=== PATIENT | male | born 1950 | race Caucasian/White ===

== ENCOUNTER 2016-12-30 09:29 | Day surgery (SDC) | payer OTHER ==
[~2016-12-30 09:29] MED LIST: ceFAZolin 2 GM/50 ML 50 ML IV ONE
[2016-12-30] MEDS ORDERED: LACTATED RINGERS 1,000 ML IV ONE ×5 (09:50→13:00)
[2016-12-30] MEDS ORDERED: fentaNYL 100 MCG/2 ML VIAL IVP ONE (10:48)
[2016-12-30] MEDS ORDERED: MIDAZOLAM 2 MG/2 ML VIAL IVP ONE (10:48)
[2016-12-30] MEDS ORDERED: KETOROLAC 30 MG/ML VIAL IVP ONE (10:48)
[2016-12-30] MEDS ORDERED: LIDOCAINE-MPF 2% 5 ML VIAL IM ONE (10:48)
[2016-12-30] MEDS ORDERED: DEXAMETHASONE 4 MG/ML VIAL IVP ONE (10:48)
[2016-12-30] MEDS ORDERED: PROPOFOL 200 MG/20 ML VIAL IVP ONE (10:48)
[2016-12-30] MEDS ORDERED: ONDANSETRON 4 MG/2 ML VIAL IVP ONE (10:48)
[2016-12-30] MEDS ORDERED: BUPIVACAINE 0.5% PF 30 ML VIAL SUBQ ONE (11:34)
== END 2016-12-30 09:30 | disposition home or self-care (01) ==
PROC: 0JB60ZZ Excision of Chest Subcutaneous Tissue and Fascia, Open Approach (ICD-10-PCS; 2016-12-30)
PROC: 0JB60ZZ Excision of Chest Subcutaneous Tissue and Fascia, Open Approach (ICD-10-PCS; principal; 2016-12-30 10:30)
DX: D17.1 Benign lipomatous neoplasm of skin and subcutaneous tissue of trunk (principal); Z87.891 Personal history of nicotine dependence; Z79.82 Long term (current) use of aspirin
CPT/HCPCS: 21552; J0690; J7120

== ENCOUNTER 2017-09-30 15:31 | Outpatient (CLI) | payer OTHER ==
--- NOTE | 2017-10-01 12:30 | XRAY Report ---
DATE OF SERVICE: 09/30/2017 TWO-VIEW CHEST: 09/30/2017 CLINICAL INDICATION: Cough, rib pain. FINDINGS: Frontal and lateral views of the chest demonstrate a normal cardiac silhouette. There is minimal linear atelectasis or scarring at the left base. No focal infiltrate, effusion, or pneumothorax is present. IMPRESSION: MINIMAL LEFT BASILAR SCARRING OR ATELECTASIS. TD: 10/01/2017 12:28
== END 2017-09-30 15:32 | disposition home or self-care (01) ==
LOC: DI 15:31
PROVIDERS: ATTEND Nurse Practitioner Family
DX: R07.81 Pleurodynia (principal); R05 Cough
CPT/HCPCS: 71046

== ENCOUNTER 2019-06-03 07:05 | Outpatient (CLI) | payer OTHER ==
--- NOTE | 2019-06-03 09:08 | Ultrasound Report ---
Reason: SCREENING FOR AAA Procedure Date: 06/03/2019 Accession Number: [id number] / [id number] Procedure: US - Aorta Screening CPT Code: FULL RESULT: EXAM: AORTIC DOPPLER ULTRASOUND EXAM DATE: 06/03/2019 07:35 AM. CLINICAL HISTORY: Screening for AAA. History of atrial fibrillation 20 years ago. COMPARISON: None. TECHNIQUE: Real-time sonographic imaging of retroperitoneal vascular structures, including color-flow, Doppler flow and spectral analysis was performed by the specialty development consultant. Multiple vendor representatives static images were saved for review. FINDINGS: Aorta: The abdominal aorta was adequately visualized. No evidence for infrarenal abdominal aortic aneurysm. Aorta: Proximal: Sagittal AP 3.0 cm. Mid: Transverse 2.5 x 2.9 cm. Distal: Transverse 2.2 x 2.0 cm. Caliber: WNL: Yes. Plaque visualized: Mildly around distal aorta, iliacs. Iliacs: Right Iliac: Transverse 1.4 x 1.1 cm. Left Iliac: Transverse 1.4 x 1.3 cm. Iliac Vessels: The visualized proximal common iliac arteries are normal in caliber. The right common iliac maximum transverse diameter is 1.4 cm, while that of the left common iliac is 1.4 cm. Other: None. IMPRESSION: Normal. No infrarenal abdominal aortic or common iliac aneurysm. RADIA
== END 2019-06-03 07:06 | disposition home or self-care (01) ==
LOC: DI 07:05
PROVIDERS: ATTEND Internal Medicine
DX: Z13.6 Encounter for screening for cardiovascular disorders (principal)
CPT/HCPCS: 76706

== ENCOUNTER 2020-06-30 12:45 | Outpatient (CLI) | payer OTHER ==
[2020-06-30] MEDS ORDERED: IOVERSOL 320 50 ML VIAL ONE (13:10)
[2020-06-30] MEDS ORDERED: IOVERSOL 320 100 ML VIAL IVP ONE ×3 (13:10→15:50)
[2020-06-30] MEDS ORDERED: IOVERSOL 320 50 ML VIAL PO ONE (15:51)
--- NOTE | 2020-06-30 16:22 | CT Report ---
PROCEDURE: Abdomen/Pelvis W INDICATIONS: ABD PAIN CONTRAST: IV CONTRAST: Optiray 320 ml: 100 PO CONTRAST: Optiray 320 ml50 TECHNIQUE: After the administration of nonionic IV contrast, 5 mm thick sections acquired from the diaphragms to the symphysis. 5 mm thick coronal and sagittal reformats were acquired. For radiation dose reducti on, the following was used: automated exposure control, adjustment of mA and/or kV according to rita ent size. COMPARISON: None available for review at the time of this dictation. FINDINGS: Image quality: Excellent. ABDOMEN: Lung bases: Lung bases are clear. Heart size is normal. Solid organs: Liver and spleen are normal in size and enhancement. Diffuse fatty liver infiltration can be seen. Gallbladder wall does not appear thickened. Biliary system is non dilated. Pancrea s enhances normally. No adrenal nodules. Kidneys demonstrate normal size and enhancement, without h ydronephrosis. Peritoneum and bowel: Focal moderate wall thickening is seen involving the sigmoid colon. There is a likely large diverticulum with surrounding inflammatory change seen on series 3 image 80. No jessica f ree air is seen. No loculated abscess collection can be seen. No definite bowel wall thickening can be seen elsewhere. No dilated loops of small bowel are seen. Nodes and vessels: No retroperitoneal or mesenteric adenopathy by size criteria. Aorta and inferior vena cava are normal in size. Miscellaneous: A mild fat-containing periumbilical hernia is seen. PELVIS: Genitourinary: Bladder wall thickness is normal. Miscellaneous: No inguinal adenopathy. Bilateral fat-containing inguinal hernias are seen. Bones: No suspicious bony lesions. No vertebral body compression fractures. Degenerative changes ar e seen throughout, which are most prominent at the L4-L5 and the L5-S1 levels. IMPRESSION: Sigmoid diverticulitis, with a likely large diverticulum seen at the center of the abnor mality. Differential diagnosis includes a contained perforation, yet this is considered to be less li marv. A colonoscopy is recommended for further evaluation, following treatment of the patient's current cli nical episode, for evaluation of a potential underlying mass. Incidental note is made of: Focal lower lumbar spine degenerative change Fatty liver infiltration Fat-containing paraumbilical hernia Fat-containing inguinal hernias Reviewed by: Moisés Baker MD on 06/30/2020 3:21 PM AKDT Approved by: Moisés Baker MD on 06/30/2020 3:21 PM KANWAL Station ID: [id number]
== END 2020-06-30 12:46 | disposition home or self-care (01) ==
LOC: DI 12:45
PROVIDERS: ATTEND Nurse Practitioner Family
DX: K57.32 Diverticulitis of large intestine without perforation or abscess without bleeding (principal); K40.90 Unilateral inguinal hernia, without obstruction or gangrene, not specified as recurrent; K42.9 Umbilical hernia without obstruction or gangrene; K76.0 Fatty (change of) liver, not elsewhere classified
CPT/HCPCS: 74177; Q9967

== ENCOUNTER 2020-07-23 17:24 | Inpatient (IN) | payer OTHER, MEDICARE ==
[2020-07-23 18:10] LABS: BASOPHILS # (AUTO) 0.1 10^3/uL (0.0-0.1); BASOPHILS % (AUTO) 1.1 %; EOSINOPHILS # (AUTO) 0.1 10^3/uL (0.0-0.7); EOSINOPHILS % (AUTO) 1.1 %; LYMPHOCYTES # (AUTO) 1.3 10^3/uL (1.5-3.5); LYMPHOCYTES % (AUTO) 22.5 %; MEAN CORPUSCULAR HEMOGLOBIN 30.9 pg (27.0-31.0); MEAN CORPUSCULAR HGB CONC 34.4 g/dL (32.0-36.0); MEAN CORPUSCULAR VOLUME 89.9 fL (80.0-94.0); MEAN PLATELET VOLUME 9.4 fL (7.4-11.4); MONOCYTES # (AUTO) 0.5 10^3/uL (0.0-1.0); MONOCYTES % (AUTO) 8.8 %; NEUTROPHILS # (AUTO) 3.8 10^3/uL (1.5-6.6); NEUTROPHILS % (AUTO) 65.8 %; PLT - PLATELET COUNT 207 10^3/uL (130-450); RED BLOOD COUNT 5.17 10^6/uL (4.70-6.10); RED CELL DISTRIBUTION WIDTH 13.2 % (12.0-15.0); WHITE BLOOD COUNT 5.7 x10^3/uL (4.8-10.8)
[2020-07-23 18:24] LABS: ALBUMIN 4.2 g/dL (3.2-5.5); ALBUMIN/GLOBULIN RATIO 1.3 (1.0-2.2); BILIRUBIN,TOTAL 0.9 mg/dL (0.2-1.0); CALCIUM 9.4 mg/dL (8.5-10.3); CREATININE 1.3 mg/dL (0.6-1.2); TOTAL PROTEIN 7.5 g/dL (6.7-8.2)
[2020-07-23] MEDS ORDERED: IOVERSOL 320 100 ML VIAL IVP ONE ×2 (19:06→20:25)
[2020-07-23 19:14] LABS: BILIRUBIN,URINE NEGATIVE (NEGATIVE); GLUCOSE, URINE (UA) NEGATIVE (NEGATIVE); KETONES,URINE (UA) NEGATIVE (NEGATIVE); LEUKOCYTE ESTERASE, URINE NEGATIVE (NEGATIVE); NITRITE,URINE NEGATIVE (NEGATIVE); OCCULT BLOOD,URINE NEGATIVE (NEGATIVE); PH,URINE 5.5 PH (5.0-7.5); PROTEIN,URINE NEGATIVE (NEGATIVE); UROBILINOGEN,URINE 0.2 (NORMAL) E.U./dL (NORMAL)
[2020-07-23 19:16] LABS: CLARITY,URINE CLEAR (CLEAR)
--- NOTE | 2020-07-23 19:26 | ED Physician Documentation ---
History of Present Illness - Stated complaint Stated Complaint: ABD PAIN - Chief complaint Chief Complaint: Abd Pain - History obtained from History obtained from: Patient - History of Present Illness Timing: How many weeks ago (2) Pain level max: 5 Pain level now: 0 - Additonal information Additional information: 69-year-old male presents to the emergency department waning of continued abdominal pain. This been ongoing for the past 2 weeks. He states it is intermittent and sharp. States he had a CT scan here 2 weeks ago, placed on antibiotics for diverticulitis, but his symptoms have never fully resolved. No fevers. No vomiting. Nothing makes it better or worse. CT was actually on 06/30/2020, outpatient CT ordered by Deanna BECKHAM. Placed on cipro and flagyl at that time. Review of Systems Ten Systems: 10 systems reviewed and negative Constitutional: denies: Fever, Chills Throat: denies: Sore throat Cardiac: denies: Chest pain / pressure Respiratory: denies: Dyspnea, Cough GI: denies: Vomiting, Diarrhea Skin: denies: Rash Musculoskeletal: denies: Neck pain, Back pain Neurologic: denies: Headache PD PAST MEDICAL HISTORY - Past Medical History Cardiovascular: Other Respiratory: None Endocrine/Autoimmune: None GI: None : None HEENT: None Psych: None Musculoskeletal: None Derm: None - Past Surgical History Past Surgical History: Yes General: Appendectomy Derm: Skin cancer surgery - Present Medications Home Medications: Ambulatory Orders Medication Instructions Recorded Confirmed Flecainide Acetate 100 mg ORAL BID 11/11/14 12/30/16 Metoprolol Tartrate [Lopressor] 25 mg PO BID #20 tablet 11/12/14 12/30/16 Aspirin [Adult Low Dose Aspirin EC] 81 mg PO DAILY 12/29/16 12/30/16 - Allergies Allergies/Adverse Reactions: Allergies Allergy/AdvReac Type Severity Reaction Status Date / Time No Known Drug Allergies Allergy Verified 07/23/20 17:38 - Social History Does the pt smoke?: No Smoking Status: Former smoker Does the pt drink ETOH?: No Does the pt have substance abuse?: No - Immunizations Immunizations are current?: Yes - POLST Patient has POLST: No PD ED PE NORMAL - Vitals Vital signs reviewed: Yes - General General: Alert and oriented X 3, No acute distress - HEENT HEENT: Moist mucous membranes - Neck Neck: Supple, no meningeal sign - Cardiac Cardiac: RRR - Respiratory Respiratory: No respiratory distress, Clear bilaterally - Abdomen Abdomen: Soft, Non tender, Non distended - Back Back: No CVA TTP - Derm Derm: Warm and dry - Extremities Extremities: No edema - Neuro Neuro: Alert and oriented X 3 - Psych Psych: Normal mood, Normal affect Results - Vitals Vitals: Vital Signs - 24 hr 07/23/20 07/23/20 17:32 19:27 Temperature 36.4 C L 36.7 C Heart Rate 56 L 52 L Respiratory 18 18 Rate Blood Pressure 144/79 H 125/80 O2 Saturation 100 100 Oxygen O2 Source Room air - Labs Labs: Laboratory Tests 07/23/20 07/23/20 07/23/20 17:55 17:55 18:37 WBC 5.7 RBC 5.17 Hgb 16.0 Hct 46.5 MCV 89.9 MCH 30.9 MCHC 34.4 RDW 13.2 Plt Count 207 MPV 9.4 Neut # (Auto) 3.8 Lymph # (Auto) 1.3 L [place] # (Auto) 0.5 Eos # (Auto) 0.1 Baso # (Auto) 0.1 Absolute Nucleated RBC 0.00 Nucleated RBC % 0.0 Sodium 139 Potassium 4.1 Chloride 99 L Carbon Dioxide 28 Anion Gap 12.0 BUN 24 H Creatinine 1.3 H Estimated GFR (MDRD) 55 L Glucose 94 Calcium 9.4 Total Bilirubin 0.9 AST 17 ALT 21 Alkaline Phosphatase 78 Total Protein 7.5 Albumin 4.2 Globulin 3.3 Albumin/Globulin Ratio 1.3 Lipase 32 Urine Color YELLOW Urine Clarity CLEAR Urine pH 5.5 Ur Specific [place] >=1.030 H Urine Protein NEGATIVE Urine Glucose (UA) NEGATIVE Urine Ketones NEGATIVE Urine Occult Blood NEGATIVE Urine Nitrite NEGATIVE Urine Bilirubin NEGATIVE Urine Urobilinogen 0.2 (NORMAL) Ur Leukocyte Esterase NEGATIVE Ur Microscopic Review NOT INDICATED Urine Culture Comments NOT INDICATED - Rads (name of study) CT abdomen and pelvis Radiology: Prelim report reviewed, EMP read contemporaneously, See rad report PD MEDICAL DECISION MAKING - ED course Complexity details: reviewed old records, reviewed results, re-evaluated patient, considered differential, d/w patient, d/w sql consultant ED course: Patient is a 69-year-old male who presents to the sensory department with what appears to be a colonic wall abscess complicating diverticulitis. He was placed on ciprofloxacin and Flagyl several weeks ago, this did not improve his symptoms. CAT scan does not appear to show any new abscess. Last colonoscopy was 5 years ago and reportedly normal. He is on flecainide, therefore will want to avoid QT prolonging medications. We will place him on IV Zosyn. Dr. Croft, general surgery came and evaluated the patient. He recommends admission for IV antibiotics, likely PICC line for IV antibiotics at home. Discussed the case with Dr. Cortez, hospitalist who graciously accepts. This document was made in part using voice recognition software. While efforts are made to proofread this document, sound alike and grammatical errors may occur. IMPRESSION: Slowly resolving inflammatory process involving the sigmoid colon, proximal half, where an intramural presumably communicating diverticular abscess is present having diminished in size from prior maximal dimension of 1.9 cm to current maximal internal dimension of 1.6 cm. A new peridiverticular abscess has not developed. No new abnormality elsewhere is found. Departure - Departure Disposition: 66 [facility] DC/[facility] Clinical Impression: Diverticulitis, Colonic diverticular abscess Condition: Stable
--- NOTE | 2020-07-23 19:43 | CT Report ---
PROCEDURE: Abdomen/Pelvis W INDICATIONS: diverticulitis, continued pain after abx CONTRAST: IV CONTRAST: Optiray 320 ml: 100 PO CONTRAST: *NO PO CONTRAST TECHNIQUE: After the administration of contrast, 5 mm thick sections acquired from the diaphragms to the sym physis. 5 mm thick coronal and sagittal reformats were acquired. For radiation dose reduction, the following was used: automated exposure control, adjustment of mA and/or kV according to patient size . COMPARISON: Prior similar CT 06/30/2020 reviewed.. FINDINGS: Image quality: Excellent. ABDOMEN: Lung bases: Lung bases are clear. Heart size is normal. Solid organs: Liver and spleen are normal in size and enhancement. Gallbladder appears normal Bili jhoana system is non dilated. Pancreas enhances normally. No adrenal nodules. Kidneys demonstrate nor mal size and enhancement, without hydronephrosis. Peritoneum and bowel: Bowel loops demonstrate normal wall thickness and caliber. No free fluid or a ir. Nodes and vessels: No retroperitoneal or mesenteric adenopathy by size criteria. Aorta and inferior vena cava are normal in size. Miscellaneous: No ventral hernias. PELVIS: Genitourinary: Bladder wall thickness is normal. Miscellaneous: No inguinal hernias or adenopathy. Within the pelvis centered to the left of midline involving the proximal half of the sigmoid colon there is persistent inflammation but improved from the prior study on June 30, 2020. The inflammation surrounding the colon has diminished, but there is a persistent intramural diverticular abscess, containing a small amount of gas and having diminis hed in size to a mild degree. This structure measures approximately 1.6 cm in maximal dimension, flui d content and gas content within. No new peridiverticular abscess has developed. Bones: No suspicious bony lesions. No vertebral body compression fractures. IMPRESSION: Slowly resolving inflammatory process involving the sigmoid colon, proximal half, where an intramural presumably communicating diverticular abscess is present having diminished in size from prior maximal dimension of 1.9 cm to current maximal internal dimension of 1.6 cm. A new peridiverti cular abscess has not developed. No new abnormality elsewhere is found. Reviewed by: Gigi Egan MD on 07/23/2020 7:41 PM PST Approved by: Gigi Egan MD on 07/23/2020 7:41 PM PST Station ID: [id number]
[2020-07-23] MEDS ORDERED: PIPERACILLIN/TAZOBACTAM 3.375 GM in SODIUM CHLORIDE 0.9% MINIBAG 100 ML IV STA (19:51)
[2020-07-23] MEDS ORDERED: SODIUM CHLORIDE 0.9% 1,000 ML IV STA (19:52)
[2020-07-23] MEDS ORDERED: SODIUM CHLORIDE FLUSH 0.9% 10 ML SYRINGE IVP PRN (19:55)
[2020-07-23] MEDS ORDERED: ONDANSETRON ODT 4 MG TABLET TL PRN (19:55)
[2020-07-23] MEDS ORDERED: MORPHINE 2 MG/ML CARPUJECT IVP PRN (19:55)
[2020-07-23] MEDS ORDERED: ACETAMINOPHEN 325 MG TABLET PO PRN (19:55)
[2020-07-23] MEDS ORDERED: ONDANSETRON 4 MG/2 ML VIAL IVP PRN (19:55)
[2020-07-23] MEDS ORDERED: oxyCODONE 5 MG TABLET PO PRN (19:55)
[2020-07-23] MEDS ORDERED: PROCHLORPERAZINE 10 MG/2 ML VIAL IVP PRN (19:57)
[2020-07-23] MEDS ORDERED: PROMETHAZINE INJ 25 MG in SODIUM CHLORIDE 0.9% 50 ML IV PRN (19:57)
[2020-07-23] MEDS ORDERED: LACTATED RINGERS 1,000 ML IV SCH (20:00)
--- NOTE | 2020-07-23 20:09 | HISTORY & PHYSICAL EXAMINATION ---
Chief Complaint - Chief Complaint Chief Complaint: LLQ abd pain History of Present Illness - Admitted From Admitted From:: Home/ER - History Obtained From Records Reviewed: [facility] History obtained from: patient and Dr. Fortune Exam Limitations: none - History of Present Illness HPI Comment/Other: 69-year-old white male who is seen by his primary care provider Kasia Huerta iggy in May for left lower quadrant abdominal pain. CT done June 30 showed sigmoid diverticulitis with a large diverticulum seen at the center of the abnormality. It involved the sigmoid bowel. Bladder was not involved. He was treated in the outpatient setting with Cipro and Flagyl. He is on flecainide. In spite of antibiotics he is continued to feel abdominal pain. He does have flatus. Rare bowel movements. Denies fever, chills, sweats. No diarrhea. No emesis. He says the pain is made worse with food. He will eat a regular meal. And with an hour or so start to feel left lower quadrant pain that is quite severe. He will then have a bowel movement and have mild relief until the pain slowly goes away again until the next time he eats. He came to the emergency room was evaluated by Dr. Red. Temperature was 36.4. Heart rate 56. Blood pressure 144/79 with an O2 sat of 100% on room air. Uterus soft, nondistended, nontender belly. The CT scan now shows persistent inflammation within the pelvis centered to the left of the midline involving the proximal half of the sigmoid colon. It is improved from the prior June 30 study. But there is a persistent intramural diverticular abscess containing a small amount of gas and having diminished in size to a mild degree. It is felt to be slowly resolving inflammatory process on CT. General surgery was consulted. Dr. Croft is on-call. He has asked the p atient be admitted to our service and he will consult. He is also requesting a PICC line be placed for long-term antibiotic therapy. History - Past Medical History Cardiovascular: reports: Atrial fibrillation Respiratory: reports: None Endocrine/Autoimmune: reports: None GI: reports: C.difficile (Diarrhea and gastritis with admission October 2015) : reports: None HEENT: reports: None Psych: reports: None Musculoskeletal: reports: None Derm: reports: Other (lipoma removal) MRSA Hx?: No - Past Surgical History General: reports: Appendectomy Derm: reports: Skin cancer surgery - Family & Social History Family History Comment/Other: Mother at age 92 of a stroke. Father of aneurysm of the Heart in his early 60s. 6 Siblings. None have stroke, heart attack, cancer, diabetes. His older brother of suicide. 2 children [place] been [place] to [place] them because of Covid. Living arrangement: At home Living Situation: With spouse/s.o. Social History Notes: Started smoking at the age of 17. smoked 1/2 to 3/4 ppd. Quit 1989. No history of alcohol abuse. Nor recreational substance abuse. First lasted about 8 months when he was very young. Second , he had 2 c hildren with. 20 years. Third lasted 3 years. Current fourth is year #13. 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 - Substance History Use: Uses substance without health or social issues: NONE Abuse: Recurrent use of substance despite neg consequences: NONE Dependence: Experiences withdrawal or developed tolerances: NONE - POLST Patient has POLST: No POLST Status: Full Code Meds/Allgy - Home Medications Home Medications: Ambulatory Orders Medication Instructions Recorded Confirmed Flecainide Acetate 100 mg ORAL BID 11/11/14 12/30/16 Metoprolol Tartrate [Lopressor] 25 mg PO BID #20 tablet 11/12/14 12/30/16 Aspirin [Adult Low Dose Aspirin EC] 81 mg PO DAILY 12/29/16 12/30/16 - Allergies Allergies/Adverse Reactions: Allergies Allergy/AdvReac Type Severity Reaction Status Date / Time No Known Drug Allergies Allergy Verified 07/23/20 17:38 Review of Systems - Constitutional Constitutional: reports: Other (All negative.) - Eyes Eyes: reports: Other (All negative.) - Ears, Nose & Throat Ears, Nose & Throat: reports: Other (All negative.) - Cardiovascular Cariovascular: reports: Other (All negative.) - Respiratory Respiratory: reports: Other (All negative.) - Gastrointestinal Gastrointestinal: reports: Bloating. denies: Constipation, Diarrhea, Rectal bleeding, Black stools, Bloody stools, Vomiting, Bile emesis, Coffee grounds emesis, Reflux/heartburn - Genitourinary Genitourinary: reports: Other (All negative.) - Musculoskeletal Musculoskeletal: reports: Other (All negative.) - Integumentary Integumentary: reports: Other (Negative.) - Neurological Neurological: reports: Other (All negative.) - Psychiatric Psychiatric: reports: Other (All negative.) - Endocrine Endocrine: reports: Other (All negative) - Hematologic/Lymphatic Hematologic/Lymphatic: reports: Other (All negative) Prior Level of Functionality: Completely independent in his own home. Still drives a car, cleans house, does yard work, works full-time, and uses no durable medical equipment. Exam - Vital Signs Reviewed Vital Signs: Yes Vital Signs: Vital Signs x48h Temp Pulse Resp BP Pulse Ox 07/23/20 19:27 36.7 C 52 L 18 125/80 100 07/23/20 17:32 36.4 C L 56 L 18 144/79 H 100 - Physical Exam General Appearance: positive: No acute distress, Alert Eyes Bilateral: positive: PERRL, EOMI ENT: positive: Pharynx nml Neck: positive: No JVD. negative: Stiff neck Respiratory: positive: No respiratory distress. negative: Wheezes, Rales, Rhonchi Cardiovascular: positive: Regular rate & rhythm. negative: Systolic murmur, Gallop/S4, Friction rub Peripheral Pulses: positive: 1+ Abdomen: positive: No organomegaly, Nml bowel sounds, No distention, Tenderness (Left lower quadrant.). negative: Guarding, Rebound Skin: positive: Warm, Dry Extremities: positive: Non-tender, Full ROM, No pedal edema Neurologic/Psychiatric: positive: Oriented x3, CN's nml (2-12), Motor nml Conclusion/Plan - Problem List (1) Colonic diverticular abscess Conclusion/Plan: The diverticular part of his disease appears to be improving from 1 CT to the next. He is without a fever, without a white cell count. Able to tolerate p.o. and having bowel movements. Main complaint is that of increasing left lower quadrant pain when he eats relieved by BM. CT with objective findings of abscess. Assessment/plan Inpatient admission Surgical consultation Patient was on quinolone and Flagyl. This will interact with his Tambocor and cause prolonged QT syndrome. Changed to Zosyn. Surgery is suggesting PICC line and that we will order that N.p.o. status until surgery finalizes their note Daily CBC, sed rate (2) Atrial fibrillation Conclusion/Plan: Tambocor resumed. Will consider medications, specifically antibiotics, on the basis of drug interaction. Qualifiers: Atrial fibrillation type: unspecified Qualified Code(s): I48.91 - Unspecified atrial fibrillation (3) ERIKA (acute kidney injury) Conclusion/Plan: mild. His baseline creatinine is usually 1.1-1.2. He is minimally above that. Could be within statistical range of lab analysis. He will be on IV fluids and we will recheck that tomorrow morning - Lab Results Lab results reviewed: Yes Hola Bones: 07/23/20 17:55 07/23/20 17:55 - Diagnostic Imaging Results Diagnostic Imaging Results: positive: Final report reviewed Diagnostic Imaging Results Comments: As in history of present illness Core Measures - Anticipated LOS I expect patient to be DC'd or transferred within 96 hours.: Yes - DVT/VTE - Prophylaxis VTE/DVT Device ordered at admit?: Yes
[2020-07-23 21:30] LABS: C. PNEUMONIAE- RESP PCR PANEL NOT DETECTED
[2020-07-23] MEDS: FLECAINIDE 50 MG TABLET PO SCH (21:45)
--- NOTE | 2020-07-23 22:17 | CONSULTATION NOTE ---
Chief Complaint - Chief Complaint Chief Complaint: Abdominal pain, and patient with known complicated diverticulitis History of Present Illness - Admitted From Admitted From:: Home - History Obtained From Records Reviewed: EMR History obtained from: Patient and emergency physician Exam Limitations: None - History of Present Illness HPI Comment/Other: 69-year-old male with atrial fibrillation on antiarrhythmic with flecainide who presents with abdominal pain in the setting of known complicated diverticulitis with intramural abscess. Associated persistent discomfort as well as febrile episodes. Patient has been on Cipro and Flagyl as well. Colonoscopy several years prior. Called by ER physician to evaluate patient given persistent mural abscess and associated failure of medical management to that point. History - Past Medical History Cardiovascular: reports: Other Respiratory: reports: None Endocrine/Autoimmune: reports: None GI: reports: None : reports: None HEENT: reports: None Psych: reports: None Musculoskeletal: reports: None Derm: reports: None MRSA Hx?: No - Past Surgical History General: reports: Appendectomy Derm: reports: Skin cancer surgery - Family & Social History Family History Comment/Other: Mother at age 92 of a stroke. Father of aneurysm of the brain. Siblings. 2 children Living arrangement: At home Living Situation: With spouse/s.o. Social History Notes: Started smoking at the age of 19. Quit 32 years ago. And smoked 1 pack/day. No history of alcohol abuse. to his for 9 years. 2 children from a previous marriage and both children live locally. 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 - Substance History Use: Uses substance without health or social issues: NONE Abuse: Recurrent use of substance despite neg consequences: NONE Dependence: Experiences withdrawal or developed tolerances: NONE - POLST Patient has POLST: No POLST Status: Full Code Meds/Allgy - Home Medications Home Medications: Ambulatory Orders Medication Instructions Recorded Confirmed Flecainide Acetate 100 mg ORAL BID 11/11/14 12/30/16 Metoprolol Tartrate [Lopressor] 25 mg PO BID #20 tablet 11/12/14 12/30/16 Aspirin [Adult Low Dose Aspirin EC] 81 mg PO DAILY 12/29/16 12/30/16 - Allergies Allergies/Adverse Reactions: Allergies Allergy/AdvReac Type Severity Reaction Status Date / Time No Known Drug Allergies Allergy Verified 07/23/20 17:38 Review of Systems - Constitutional Constitutional: reports: Fatigue, Fever - Gastrointestinal Gastrointestinal: reports: Abdominal pain Exam - Vital Signs Reviewed Vital Signs: Yes Vital Signs: Vital Signs x48h Temp Pulse Pulse Resp BP BP Pulse Ox 07/23/20 20:51 36.5 C 53 L 18 139/80 H 100 07/23/20 19:27 36.7 C 52 L 18 125/80 100 07/23/20 17:32 36.4 C L 56 L 18 144/79 H 100 - Physical Exam General Appearance: positive: No acute distress, Alert, Mild distress Eyes Bilateral: positive: Normal inspection, PERRL, EOMI, No scleral icterus ENT: positive: ENT inspection nml Neck: positive: Nml inspection Respiratory: positive: Chest non-tender, No respiratory distress, Breath sounds nml Cardiovascular: positive: Regular rate & rhythm Abdomen: positive: Tenderness. negative: Guarding, Rebound Extremities: positive: Non-tender, Full ROM, Nml appearance Neurologic/Psychiatric: positive: Oriented x3, CN's nml (2-12), Motor nml, Sensation nml, Mood/affect nml Conclusion/Plan - Diagnosis Diagnosis: 1. Complicated diverticulitis with intramural abscess. 2. Refractory diverticulitis failing longstanding oral antibiotic therapy. 3. Persistent abdominal pain. 4. Communicating abscess cavity with intramural contrast noted on enhanced CT - Plan Plan: 69-year-old male with refractory complicated diverticular disease consistent with communicating mural abscess with contrast noted within the cavity. Persistent pain. Attempted for oral antibiotics with only mild improvement. Patient will invariably require segmental resection however optimally will prefer to do this electively towards avoiding either Senior's with end colostomy (for which takedown is a much more significant endeavor) and/or a primary resection with anastomosis and proximal diversion through loop ileostomy. Moreover patient has not undergone recent colonoscopy and obviously we would prefer to do this after resolution of the current infectious process toward surveying the colon preoperatively and as part of the appropriate diagnostic work-up to rule out malignancy. Thus would recommend PICC line placement and IV antibiotics likely with Invanz 1 g daily for 2 weeks with repeat CAT scan prior to removing the PICC line to assure the patient is progressing appropriately. This was explained to the patient who understands. - Lab Results Fish Bones: 07/24/20 04:50 07/24/20 04:50 - Diagnostic Imaging Results Diagnostic Imaging Results Comments: CT abdomen pelvis impression: Slowly resolving inflammatory process involving the sigmoid colon, proximal half, where an intramural presumably communicating diverticular abscess is present having diminished in size from prior maximum dimension of 1.9 cm to current maximal dimension of 1.6 cm. From the body of the report as compared to June 30, 2020, inflammation surrounding the colon has diminished but there is a persistent intramural diverticular abscess, containing a small amount of gas and diminished in size to mild degree. This structure measures approximately 1.6 cm in maximal dimension, fluid content and gas content within. No new peridiverticular abscess developed. From my review there is also contrast noted within this cavity which obviously is communicating with the intestinal/colonic lumen.
[2020-07-24] MEDS: PIPERACILLIN/TAZOBACTAM 3.375 GM in SODIUM CHLORIDE 0.9% MINIBAG 100 ML IV SCH ×4 (00:02→23:58)
[2020-07-24] MEDS: SODIUM CHLORIDE FLUSH 0.9% 10 ML SYRINGE IVP SCH ×4 (00:02→23:58)
[2020-07-24 05:03] LABS: BASOPHILS % (AUTO) 0.6 %; EOSINOPHILS # (AUTO) 0.1 10^3/uL (0.0-0.7); EOSINOPHILS % (AUTO) 1.3 %; HGB - HEMOGLOBIN 14.3 g/dL (14.0-18.0); LYMPHOCYTES # (AUTO) 0.9 10^3/uL (1.5-3.5); LYMPHOCYTES % (AUTO) 19.2 %; MEAN CORPUSCULAR HEMOGLOBIN 31.4 pg (27.0-31.0); MEAN CORPUSCULAR VOLUME 89.7 fL (80.0-94.0); MEAN PLATELET VOLUME 9.2 fL (7.4-11.4); MONOCYTES # (AUTO) 0.6 10^3/uL (0.0-1.0); MONOCYTES % (AUTO) 11.8 %; NEUTROPHILS # (AUTO) 3.1 10^3/uL (1.5-6.6); NEUTROPHILS % (AUTO) 66.2 %; PLT - PLATELET COUNT 165 10^3/uL (130-450); RED BLOOD COUNT 4.56 10^6/uL (4.70-6.10); WHITE BLOOD COUNT 4.7 x10^3/uL (4.8-10.8)
[2020-07-24 05:14] LABS: CALCIUM 8.7 mg/dL (8.5-10.3); CREATININE 1.3 mg/dL (0.6-1.2)
[2020-07-24] MEDS: ENOXAPARIN 40 MG/0.4 ML SYRINGE SUBQ SCH (09:48)
[2020-07-24] MEDS: FLECAINIDE 50 MG TABLET PO SCH ×2 (09:48→20:45)
--- NOTE | 2020-07-24 10:52 | PHARMACY PROGRESS NOTE ---
- Best Possible Medication History Admit Date and Time: 07/23/201954 Processed by: Pharmacy Medication History completed: Yes Patient Interview: Completed Secondary Source(s): Physician records, Pharmacy records, Insurance records As the person ultimately responsible for medication therapy, providers are able to order a medication from an existing home medication list in [facility] via the "Reconcile Routine" prior to Confirmation of that medication by technician support association. Such practice is discouraged except when the physician, in their clinical judgment, deems that a medical need exists for a medication without regard to previous use.
--- NOTE | 2020-07-24 13:13 | PROVIDER PROGRESS NOTE ---
Subjective - Prog Note Date Prog Note Date: 07/24/20 - Subjective Subjective: He reports no abdominal pain since yesterday. Not had anything to eat. He states his pain usually occurs 1 hour after eating and will last for about 5 minutes. It is located in the left lower quadrant. No blood in his stool. No fevers or chills. Current Medications - Current Medications Current Medications: Active Medications Acetaminophen (Tylenol) 650 mg PO Q4HR PRN PRN Reason: Pain 1 to 4 Enoxaparin Sodium (Lovenox) 40 mg SUBQ DAILY [facility] Last Admin: 07/24/20 09:48 Dose: 40 mg Documented by: Flecainide Acetate (Tambocar) 100 mg PO BID [facility] Last Admin: 07/24/20 09:48 Dose: 100 mg Documented by: Lactated Ringer's (Lr) 1,000 mls @ 100 mls/hr IV .Q10H [facility] Last Infusion: 07/24/20 09:55 Dose: 0 mls/hr Documented by: Promethazine HCl 25 mg/ Sodium (Chloride) 51 mls @ 100 mls/hr IV Q6H PRN PRN Reason: Nausea / Vomiting Piperacillin Sod/Tazobactam (Sod 3.375 gm/ Sodium Chloride) 100 mls @ 25 mls/hr IV Q8H [facility] Last Admin: 07/24/20 09:49 Dose: 25 mls/hr Documented by: Morphine Sulfate (Morphine (Carpuject)) 2 mg IVP Q2HR PRN PRN Reason: Pain 8 to 10 Ondansetron HCl (Zofran Odt) 4 mg TL Q6HR PRN PRN Reason: Nausea / Vomiting Ondansetron HCl (Zofran Inj) 4 mg IVP Q6HR PRN PRN Reason: Nausea / Vomiting Oxycodone HCl (Roxicodone) 5 mg PO Q4HR PRN PRN Reason: Pain 5 to 7 Prochlorperazine Edisylate (Compazine Inj) 10 mg IVP Q6HR PRN PRN Reason: Nausea / Vomiting Sodium Chloride (Normal Saline Flush 0.9%) 10 ml IVP PRN PRN PRN Reason: NEEDED PER PROVIDER ORDERS Sodium Chloride (Normal Saline Flush 0.9%) 10 ml IVP 0100,0900,1700 [facility] Last Admin: 07/24/20 12:16 Dose: Not Given Documented by: Flecainide Acetate 100 mg ORAL BID 11/11/14 Aspirin [Adult Low Dose Aspirin EC] 81 mg PO DAILY 12/29/16 Objective - Vital Signs/Intake & Output Reviewed Vital Signs: Yes Vital Signs: Vital Signs x48h Temp Pulse Pulse Resp BP Pulse Ox 07/24/20 07:41 36.7 C 61 16 113/85 H 98 07/24/20 07:30 36.7 C 56 L 16 98 Intake & Output: Intake & Output 07/21/20 07/22/20 07/23/20 07/24/20 23:59 23:59 23:59 23:59 Intake Total 382 850.000 Balance 382 850.000 - Objective General Appearance: positive: No acute distress, Alert Eyes Bilateral: positive: Normal inspection ENT: positive: ENT inspection nml Neck: positive: Nml inspection Respiratory: positive: No respiratory distress. negative: Wheezes, Rales Cardiovascular: positive: Regular rate & rhythm, No murmur. negative: Tachycardia, Bradycardia, Systolic murmur Abdomen: positive: Non-tender, No distention. negative: Tenderness, Guarding, Rebound Skin: positive: Warm, Dry Extremities: positive: Full ROM, No pedal edema Neurologic/Psychiatric: positive: Oriented x3, Motor nml. negative: Disoriented to person, Disoriented to place, Disoriented to time - Lab Results Fish Bones: 07/24/20 04:50 07/24/20 04:50 Other Labs: Lab Results x24hrs 07/24/20 07/24/20 07/23/20 Range/Units 04:50 04:50 20:32 WBC 4.7 L (4.8-10.8) x10^3/uL RBC 4.56 L (4.70-6.10) 10^6/uL Hgb 14.3 (14.0-18.0) g/dL Hct 40.9 L (42.0-52.0) % MCV 89.7 (80.0-94.0) fL MCH 31.4 H (27.0-31.0) pg MCHC 35.0 (32.0-36.0) g/dL RDW 13.0 (12.0-15.0) % Plt Count 165 (130-450) 10^3/uL MPV 9.2 (7.4-11.4) fL Neut # (Auto) 3.1 (1.5-6.6) 10^3/uL Lymph # (Auto) 0.9 L (1.5-3.5) 10^3/uL [place] # (Auto) 0.6 (0.0-1.0) 10^3/uL Eos # (Auto) 0.1 (0.0-0.7) 10^3/uL Baso # (Auto) 0.0 (0.0-0.1) 10^3/uL Absolute Nucleated RBC 0.00 x10^3/uL Nucleated RBC % 0.0 /100WBC Sodium 139 (135-145) mmol/L Potassium 3.8 (3.5-5.0) mmol/L Chloride 105 (101-111) mmol/L Carbon Dioxide 26 (21-32) mmol/L Anion Gap 8.0 (6-13) BUN 21 H (6-20) mg/dL Creatinine 1.3 H (0.6-1.2) mg/dL Estimated GFR (MDRD) 55 L (>89) Glucose 98 (70-100) mg/dL Calcium 8.7 (8.5-10.3) mg/dL Total Bilirubin (0.2-1.0) mg/dL AST (10-42) IU/L ALT (10-60) IU/L Alkaline Phosphatase (42-121) IU/L Total Protein (6.7-8.2) g/dL Albumin (3.2-5.5) g/dL Globulin (2.1-4.2) g/dL Albumin/Globulin Ratio (1.0-2.2) Lipase (22-51) U/L Urine Color Urine Clarity (CLEAR) Urine pH (5.0-7.5) PH Ur Specific [place] (1.002-1.030) Urine Protein (NEGATIVE) mg/dL Urine Glucose (UA) (NEGATIVE) mg/dL Urine Ketones (NEGATIVE) mg/dL Urine Occult Blood (NEGATIVE) Urine Nitrite (NEGATIVE) Urine Bilirubin (NEGATIVE) Urine Urobilinogen (NORMAL) E.U./dL Ur Leukocyte Esterase (NEGATIVE) Ur Microscopic Review Urine Culture Comments Nasal Adenovirus (PCR) NOT DETECTED Nasal B. parapertussis DNA (PCR) NOT DETECTED Nasal Coronavir 229E PCR NOT DETECTED Nasal Coronavir HKU1 PCR NOT DETECTED Nasal Coronavir NL63 PCR NOT DETECTED Nasal Coronavir OC43 PCR NOT DETECTED Nasal Enterovir/Rhinovir PCR NOT DETECTED Nasal Influenza B PCR NOT DETECTED Nasal Influenza A PCR NOT DETECTED Nasal Parainfluen 1 PCR NOT DETECTED Nasal Parainfluen 2 PCR NOT DETECTED Nasal Parainfluen 3 PCR NOT DETECTED Nasal Parainfluen 4 PCR NOT DETECTED Nasal RSV (PCR) NOT DETECTED Nasal B.pertussis DNA PCR NOT DETECTED Nasal C.pneumoniae (PCR) NOT DETECTED [place] Human Metapneumo PCR NOT DETECTED Nasal M.pneumoniae (PCR) NOT DETECTED Nasal SARS-CoV-2 (PCR) NOT DETECTED 07/23/20 07/23/20 07/23/20 Range/Units 18:37 17:55 17:55 WBC 5.7 (4.8-10.8) x10^3/uL RBC 5.17 (4.70-6.10) 10^6/uL Hgb 16.0 (14.0-18.0) g/dL Hct 46.5 (42.0-52.0) % MCV 89.9 (80.0-94.0) fL MCH 30.9 (27.0-31.0) pg MCHC 34.4 (32.0-36.0) g/dL RDW 13.2 (12.0-15.0) % Plt Count 207 (130-450) 10^3/uL MPV 9.4 (7.4-11.4) fL Neut # (Auto) 3.8 (1.5-6.6) 10^3/uL Lymph # (Auto) 1.3 L (1.5-3.5) 10^3/uL [place] # (Auto) 0.5 (0.0-1.0) 10^3/uL Eos # (Auto) 0.1 (0.0-0.7) 10^3/uL Baso # (Auto) 0.1 (0.0-0.1) 10^3/uL Absolute Nucleated RBC 0.00 x10^3/uL Nucleated RBC % 0.0 /100WBC Sodium 139 (135-145) mmol/L Potassium 4.1 (3.5-5.0) mmol/L Chloride 99 L (101-111) mmol/L Carbon Dioxide 28 (21-32) mmol/L Anion Gap 12.0 (6-13) BUN 24 H (6-20) mg/dL Creatinine 1.3 H (0.6-1.2) mg/dL Estimated GFR (MDRD) 55 L (>89) Glucose 94 (70-100) mg/dL Calcium 9.4 (8.5-10.3) mg/dL Total Bilirubin 0.9 (0.2-1.0) mg/dL AST 17 (10-42) IU/L ALT 21 (10-60) IU/L Alkaline Phosphatase 78 (42-121) IU/L Total Protein 7.5 (6.7-8.2) g/dL Albumin 4.2 (3.2-5.5) g/dL Globulin 3.3 (2.1-4.2) g/dL Albumin/Globulin Ratio 1.3 (1.0-2.2) Lipase 32 (22-51) U/L Urine Color YELLOW Urine Clarity CLEAR (CLEAR) Urine pH 5.5 (5.0-7.5) PH Ur Specific [place] >=1.030 H (1.002-1.030) Urine Protein NEGATIVE (NEGATIVE) mg/dL Urine Glucose (UA) NEGATIVE (NEGATIVE) mg/dL Urine Ketones NEGATIVE (NEGATIVE) mg/dL Urine Occult Blood NEGATIVE (NEGATIVE) Urine Nitrite NEGATIVE (NEGATIVE) Urine Bilirubin NEGATIVE (NEGATIVE) Urine Urobilinogen 0.2 (NORMAL) (NORMAL) E.U./dL Ur Leukocyte Esterase NEGATIVE (NEGATIVE) Ur Microscopic Review NOT INDICATED Urine Culture Comments NOT INDICATED Nasal Adenovirus (PCR) Nasal B. parapertussis DNA (PCR) Nasal Coronavir 229E PCR Nasal Coronavir HKU1 PCR Nasal Coronavir NL63 PCR Nasal Coronavir OC43 PCR Nasal Enterovir/Rhinovir PCR Nasal Influenza B PCR Nasal Influenza A PCR Nasal Parainfluen 1 PCR Nasal Parainfluen 2 PCR Nasal Parainfluen 3 PCR Nasal Parainfluen 4 PCR Nasal RSV (PCR) Nasal B.pertussis DNA PCR Nasal C.pneumoniae (PCR) [place] Human Metapneumo PCR Nasal M.pneumoniae (PCR) Nasal SARS-CoV-2 (PCR) ABX Reporting Has patient been on IV antibiotics over the past 48 hours?: Yes Assessment/Plan - Problem List (1) Colonic diverticular abscess Impression: Although his pain is well controlled, he failed outpatient treatment with oral antibiotics and repeat CT shows a persistent albeit improving abscess. General surgery recommended 2 weeks of IV antibiotics with a repeat CT scan in 2 weeks. A PICC line will be placed today and we will hope to discharge him tomorrow on daily ertapenem for [address] him on a full liquid diet for the time being. (2) Atrial fibrillation Impression: Stable. Continue home flecainide and metoprolol. Qualifiers: Atrial fibrillation type: unspecified Qualified Code(s): I48.91 - Unspecified atrial fibrillation
--- NOTE | 2020-07-24 13:36 | ANESTHESIA PROCEDURE NOTE ---
Anesth Central Line Template - Central Line Central Line Preparation: Consent Obtained, Ultrasound used, Sterile prep and drape Central line location: Right Basilic Central line type: PICC Single Lumen Central line catheter tip site resides: Superior vena cava (SVC) (Lower 1/3 SVC) Central line aftercare: Secured, Placement confirmed, No complications, Pt tolerated well Other Info/Details: Informed consent obtained. Patient's right arm was prepped with chlorohexadine x2. Full sterile gown/gloves/mask and drape utilized. Timeout completed. Right basilic vein imaged using ultrasound. 20G needle used to access vein and wire advanced with ease. Sheath inserted over wire and wire removed. Catheter trimmed to 48cm and advanced with ease. Wire tracking shows tip to head towards heart. VPS tip tracker shows maximal p-wave at 48cm. Tracking wire removed. Port aspirates blood and flushes with ease. Line secured and ok for nursing to use.
[2020-07-24] MEDS: METOPROLOL TARTRATE 25 MG TABLET PO SCH (20:50)
[2020-07-25 05:04] LABS: BASOPHILS % (AUTO) 0.8 %; EOSINOPHILS # (AUTO) 0.1 10^3/uL (0.0-0.7); HGB - HEMOGLOBIN 14.4 g/dL (14.0-18.0); LYMPHOCYTES # (AUTO) 0.9 10^3/uL (1.5-3.5); LYMPHOCYTES % (AUTO) 18.2 %; MEAN CORPUSCULAR HEMOGLOBIN 30.7 pg (27.0-31.0); MEAN CORPUSCULAR HGB CONC 34.4 g/dL (32.0-36.0); MEAN CORPUSCULAR VOLUME 89.1 fL (80.0-94.0); MEAN PLATELET VOLUME 9.2 fL (7.4-11.4); MONOCYTES # (AUTO) 0.5 10^3/uL (0.0-1.0); MONOCYTES % (AUTO) 10.4 %; NEUTROPHILS # (AUTO) 3.4 10^3/uL (1.5-6.6); NEUTROPHILS % (AUTO) 69.2 %; PLT - PLATELET COUNT 172 10^3/uL (130-450); RED BLOOD COUNT 4.69 10^6/uL (4.70-6.10); RED CELL DISTRIBUTION WIDTH 12.9 % (12.0-15.0); WHITE BLOOD COUNT 4.9 x10^3/uL (4.8-10.8)
[2020-07-25 05:13] LABS: CALCIUM 8.8 mg/dL (8.5-10.3); CREATININE 1.3 mg/dL (0.6-1.2)
[2020-07-25] MEDS: FLECAINIDE 50 MG TABLET PO SCH (08:15)
[2020-07-25] MEDS: PIPERACILLIN/TAZOBACTAM 3.375 GM in SODIUM CHLORIDE 0.9% MINIBAG 100 ML IV SCH (08:15)
[2020-07-25] MEDS: ENOXAPARIN 40 MG/0.4 ML SYRINGE SUBQ SCH (08:16)
[2020-07-25] MEDS: METOPROLOL TARTRATE 25 MG TABLET PO SCH (08:16)
[2020-07-25 08:59] VITALS: BP 136/86
[2020-07-25] MEDS ORDERED: ASPIRIN EC 81 MG TABLET PO SCH (09:00)
--- NOTE | 2020-07-25 12:10 | DISCHARGE SUMMARY ---
"Discharge Summary Admit Date: 07/23/20 Discharge Date: 07/25/20 Discharging Provider: Tony Cesar Primary Care Provider: Mehul Cantu Code Status: Attempt Resuscitation Condition at Discharge: Stable Discharge Disposition: 01 Home, Self Care - DIAGNOSES Admission Diagnoses: Colonic diverticular abscess Atrial fibrillation Acute kidney injury Discharge Diagnoses with Status of Each Condition: Colonic diverticular abscess - stable. Atrial fibrillation - stable. - HPI History of Present Illness: H&P per Dr. Cortez: 69-year-old white male who is seen by his primary care provider Kasia Huerta back in May for left lower quadrant abdominal pain. CT done June 30 showed sigmoid diverticulitis with a large diverticulum seen at the center of the abnormality. It involved the sigmoid bowel. Bladder was not involved. He was treated in the outpatient setting with Cipro and Flagyl. He is on flecainide. In spite of antibiotics he is continued to feel abdominal pain. He does have flatus. Rare bowel movements. Denies fever, chills, sweats. No diarrhea. No emesis. He says the pain is made worse with food. He will eat a regular meal. And with an hour or so start to feel left lower quadrant pain that is quite severe. He will then have a bowel movement and have mild relief until the pain slowly goes away again until the next time he eats. He came to the emergency room was evaluated by Dr. Red. Temperature was 36.4. Heart rate 56. Blood pressure 144/79 with an O2 sat of 100% on room air. Uterus soft, nondistended, nontender belly. The CT scan now shows persistent inflammation within the pelvis centered to the left of the midline involving the proximal half of the sigmoid colon. It is improved from the prior June 30 study. But there is a persistent intramural diverticular abscess containing a small amount of gas and having diminished in size to a mild degree. It is felt to be slowly resolving inflammatory process on CT. General surgery was consulted. Dr. Croft is on-call. He has asked the patient be admitted to our service and he will consult. He is also requesting a PICC line be placed for long-term antibiotic therapy. - CONSULTS | PROCEDURES Consultations: General Surgery Procedures: Single-lumen PICC line was placed on July 24. - HOSPITAL COURSE Hospital Course: He was admitted for IV antibiotics given the diverticular abscess. This had improved compared to prior imaging but was still present. He was evaluated by general surgery who recommended 2 weeks of IV antibiotics with ertapenem followed by repeat CT on outpatient basis. PICC line was placed by anesthesia and the patient was set up with outpatient ertapenem 1 g IV daily for 2 weeks. He will follow-up with general surgeon outpatient basis for repeat imaging and he will need a colonoscopy in 6 to 8 weeks. He was tolerating a diet and his pain was controlled without any medications. He was recommended to continue a low fiber diet on discharge. - ALLERGIES Allergies/Adverse Reactions: Allergies Allergy/AdvReac Type Severity Reaction Status Date / Time No Known Drug Allergies Allergy Verified 07/23/20 17:38 - MEDICATIONS Home Medications: Ambulatory Orders Medication Instructions Recorded Confirmed Flecainide Acetate 100 mg ORAL BID 11/11/14 07/24/20 Metoprolol Tartrate [Lopressor] 25 mg PO BID #20 tablet 11/12/14 07/24/20 Aspirin [Adult Low Dose Aspirin EC] 81 mg PO DAILY 12/29/16 07/24/20 Ertapenem [INVanz] 1 gm IV Q24H 14 Days #14 vial 07/25/20 - PHYSICAL EXAM AT DISCHARGE General Appearance: positive: No acute distress, Alert Eyes Bilateral: positive: Normal inspection, Conjunctivae nml ENT: positive: ENT inspection nml Neck: positive: Nml inspection Respiratory: positive: No respiratory distress. negative: Wheezes, Rales Cardiovascular: positive: Regular rate & rhythm, No murmur. negative: Tachycardia Abdomen: positive: Non-tender, No distention. negative: Tenderness, Guarding, Rebound Skin: positive: Warm, Dry Extremities: positive: Full ROM, No pedal edema Neurologic/Psychiatric: positive: Oriented x3, Motor nml. negative: Disoriented to person, Disoriented to place, Disoriented to time Physical Exam Other/Comments: Vital Signs - 24 hr 07/24/20 07/25/20 07/25/20 20:50 00:00 08:00 Temperature 36.5 C 36.7 C Heart Rate [ 51 L 64 Radial] Respiratory 16 16 Rate Blood Pressure 137/85 H Blood Pressure 112/58 L 136/86 H [Left Brachial artery] O2 Saturation 100 95 07/25/20 08:16 Temperature Heart Rate [ Radial] Respiratory Rate Blood Pressure 135/86 H Blood Pressure [Left Brachial artery] O2 Saturation Oxygen O2 Source Room air - LABS Result Diagrams: 07/25/20 04:46 07/25/20 04:46 Other Lab Results: Laboratory Results - last 24 hr 07/25/20 07/25/20 04:46 04:46 WBC 4.9 RBC 4.69 L Hgb 14.4 Hct 41.8 L MCV 89.1 MCH 30.7 MCHC 34.4 RDW 12.9 Plt Count 172 MPV 9.2 Neut # (Auto) 3.4 Lymph # (Auto) 0.9 L [place] # (Auto) 0.5 Eos # (Auto) 0.1 Baso # (Auto) 0.0 Absolute Nucleated RBC 0.00 Nucleated RBC % 0.0 Sodium 137 Potassium 3.6 Chloride 105 Carbon Dioxide 25 Anion Gap 7.0 BUN 16 Creatinine 1.3 H Estimated GFR (MDRD) 55 L Glucose 95 Calcium 8.8 - FOLLOW UP Follow Up: He will follow up with general surgery for repeat CT scan in 2 weeks. - TIME SPENT Time Spent in Discharge (Minutes): 31"
--- NOTE | 2020-07-25 12:10 | Discharge Plan ---
Discharge Plan Problem Reviewed?: Yes Disposition: Home, Self Care Condition: Stable Prescriptions: Ertapenem [INVanz] 1 gm IV Q24H 14 Days #14 vial Diet: Regular (Low fibre.) Activity Restrictions: Activity as Tolerated Instruction Topics: Diverticulitis Dc Health Concerns: You were in the hospital because of diverticulitis with a small abscess collection. You will need IV antibiotics for 2 weeks and this has been set up for you. You need to follow-up with a general surgeon once you are discharged as you will need a repeat CAT scan in 2 weeks and a colonoscopy in about 6 to 8 weeks. Plan of Treatment: Home health infusions will be providing you with the antibiotics which she will take daily for 2 weeks. Please eat a low fiber diet for the time being. Additional Instructions or Follow Up instructions: Please follow-up with the general surgeon. No Smoking: If you smoke, Please STOP! Call for help. Follow-up with: Mehul Cantu MD [Primary Care Provider] -
[2020-07-25] MEDS: SODIUM CHLORIDE FLUSH 0.9% 10 ML SYRINGE IVP SCH (13:42)
== END 2020-07-25 13:30 | disposition home or self-care (01) | DRG 392 ==
LOC: ED 17:24 → MS3 19:55
PROVIDERS: ADMIT Specialist; ATTEND Internal Medicine
PROC: 02HV33Z Insertion of Infusion Device into Superior Vena Cava, Percutaneous Approach (ICD-10-PCS; principal; 2020-07-24)
DX: K57.20 Diverticulitis of large intestine with perforation and abscess without bleeding (principal); I48.91 Unspecified atrial fibrillation; Z79.82 Long term (current) use of aspirin; Z79.899 Other long term (current) drug therapy; Z86.19 Personal history of other infectious and parasitic diseases; Z87.891 Personal history of nicotine dependence
CPT/HCPCS: 0202U; 36415; 74177; 80048; 80053; 81003; 83690; 85025; 99284; 99285; A9270; C1751; J1650; J7120; Q9967; 81001; 87086

== ENCOUNTER 2020-08-11 08:28 | Outpatient (CLI) | payer OTHER, MEDICARE ==
[2020-08-11] MEDS ORDERED: IOVERSOL 320 50 ML VIAL ONE (08:48)
[2020-08-11] MEDS ORDERED: IOVERSOL 320 100 ML VIAL IVP ONE ×2 (08:48→09:56)
[2020-08-11] MEDS ORDERED: IOVERSOL 320 50 ML VIAL PO ONE (09:57)
--- NOTE | 2020-08-11 10:43 | CT Report ---
PROCEDURE: Abdomen/Pelvis W INDICATIONS: ABSCESS OF INTESTINE, DIVERTICULOSIS OF INTESTINE CONTRAST: IV CONTRAST: Optiray 320 ml: 100 PO CONTRAST: Optiray 320 ml50 TECHNIQUE: After the administration of IV and oral contrast, 5 mm thick sections acquired from the diaphragms to the symphysis. 5 mm thick coronal and sagittal reformats were acquired. For radiation dose reducti on, the following was used: automated exposure control, adjustment of mA and/or kV according to rita ent size. COMPARISON: CT abdomen pelvis dated 07/23/2020. FINDINGS: Image quality: Excellent. ABDOMEN: Lung bases: Lung bases are clear. Heart size is normal. Solid organs: Liver and spleen are normal in size and enhancement. Gallbladder negative Biliary sy stem is non dilated. Pancreas enhances normally. No adrenal nodules. Kidneys demonstrate normal si ze and enhancement, without hydronephrosis. Exophytic simple appearing right renal cyst. Peritoneum and bowel: Numerous colonic diverticula are present. Sigmoid diverticulitis and associated abscess as before measuring 2.0 x 1.9 cm, minimally increased since the prior study (1.7 x 1.3 cm) t here is intraluminal gas as before. There is slightly decreased peripheral enhancement. No free air. No free fluid Nodes and vessels: No retroperitoneal or mesenteric adenopathy by size criteria. Aorta and inferior vena cava are normal in size. Miscellaneous: No ventral hernias. PELVIS: Genitourinary: Bladder wall thickness is normal. Small bilateral fat-containing inguinal hernias. Incidentally noted intramuscular lipoma involving th e anterior left thigh and hip musculature. Bones: No suspicious bony lesions. No vertebral body compression fractures. IMPRESSION: Redemonstrated sigmoid diverticulitis, with associated small abscess. This demonstrates minimal increase in size since the prior study dated 07/23/2020, although slightly decreased peripher al inflammatory enhancement Additional chronic and incidental findings as above. Reviewed by: Duglas Swenson MD on 08/11/2020 10:42 AM PST Approved by: Duglas Swenson MD on 08/11/2020 10:42 AM PST Station ID: [id number]
== END 2020-08-11 08:29 | disposition home or self-care (01) ==
LOC: DI 08:28
PROVIDERS: ATTEND Internal Medicine
DX: K57.20 Diverticulitis of large intestine with perforation and abscess without bleeding (principal)
CPT/HCPCS: 74177; Q9967

== ENCOUNTER 2020-09-06 07:06 | Day surgery (SDC) | payer OTHER ==
[2020-09-06] MEDS ORDERED: LACTATED RINGERS 1,000 ML IV ONE ×2 (07:36→08:52)
[2020-09-06] MEDS ORDERED: fentaNYL 250 MCG/5 ML VIAL ONE (08:28)
[2020-09-06] MEDS ORDERED: MIDAZOLAM 2 MG/2 ML VIAL ONE ×2 (08:28→08:43)
[2020-09-06 08:54] VITALS: BP 103/76
== END 2020-09-06 07:07 | disposition home or self-care (01) ==
LOC: SDS 07:06
PROVIDERS: ATTEND Surgery
DX: Z09 Encounter for follow-up examination after completed treatment for conditions other than malignant neoplasm (principal); Z87.19 Personal history of other diseases of the digestive system; K57.30 Diverticulosis of large intestine without perforation or abscess without bleeding; I49.9 Cardiac arrhythmia, unspecified; Z87.891 Personal history of nicotine dependence
CPT/HCPCS: 45378; J3010; J7120

== ENCOUNTER 2020-12-03 07:00 | Outpatient (CLI) | payer OTHER | END 2020-12-03 23:59 | disposition home or self-care (01) | LOC: COV 07:00 | PROVIDERS: ATTEND Surgery Surgical Oncology | DX: Z01.812 Encounter for preprocedural laboratory examination (principal); C43.9 Malignant melanoma of skin, unspecified; Z20.822 Contact with and (suspected) exposure to COVID-19 ==

== ENCOUNTER 2021-05-16 11:48 | Outpatient (CLI) | payer OTHER, MEDICARE | END 2021-05-16 11:49 | disposition home or self-care (01) | LOC: COV 11:48 | PROVIDERS: ATTEND Family Medicine | DX: Z20.822 Contact with and (suspected) exposure to COVID-19 (principal) ==

== ENCOUNTER 2021-06-18 16:26 | Outpatient (CLI) | payer OTHER, MEDICARE | END 2021-06-18 16:27 | disposition home or self-care (01) | LOC: COV 16:26 | PROVIDERS: ATTEND Family Medicine | DX: Z20.822 Contact with and (suspected) exposure to COVID-19 (principal) ==

== ENCOUNTER 2022-11-10 08:00 | Outpatient (CLI) | payer MEDICARE, OTHER | END 2022-11-10 23:59 | disposition home or self-care (01) | LOC: LAB 08:00 | PROVIDERS: ATTEND Physician Assistant | DX: R30.0 Dysuria (principal) | CPT/HCPCS: 87086 ==

== ENCOUNTER 2022-12-04 09:35 | Outpatient (CLI) | payer OTHER ==
[2022-12-04 14:14] LABS: BASOPHILS % (AUTO) 0.7 %; EOSINOPHILS # (AUTO) 0.1 10^3/uL (0.0-0.7); EOSINOPHILS % (AUTO) 0.9 %; HCT - HEMATOCRIT 43.6 % (42.0-52.0); HGB - HEMOGLOBIN 14.9 g/dL (14.0-18.0); LYMPHOCYTES # (AUTO) 1.2 10^3/uL (1.5-3.5); LYMPHOCYTES % (AUTO) 21.5 %; MEAN CORPUSCULAR HEMOGLOBIN 30.9 pg (27.0-31.0); MEAN CORPUSCULAR HGB CONC 34.2 g/dL (32.0-36.0); MEAN CORPUSCULAR VOLUME 90.5 fL (80.0-94.0); MEAN PLATELET VOLUME 9.5 fL (7.4-11.4); MONOCYTES # (AUTO) 0.6 10^3/uL (0.0-1.0); MONOCYTES % (AUTO) 10.6 %; NEUTROPHILS # (AUTO) 3.7 10^3/uL (1.5-6.6); NEUTROPHILS % (AUTO) 65.6 %; PLT - PLATELET COUNT 213 10^3/uL (130-450); RED BLOOD COUNT 4.82 10^6/uL (4.70-6.10); RED CELL DISTRIBUTION WIDTH 13.4 % (12.0-15.0); WHITE BLOOD COUNT 5.6 x10^3/uL (4.8-10.8)
[2022-12-04 14:33] LABS: ALBUMIN/GLOBULIN RATIO 1.3 (1.0-2.2); BILIRUBIN,TOTAL 0.9 mg/dL (0.2-1.0); CALCIUM 8.9 mg/dL (8.5-10.3); CREATININE 1.3 mg/dL (0.6-1.2); POTASSIUM 4.4 mmol/L (3.5-5.0)
== END 2022-12-04 09:36 | disposition home or self-care (01) ==
LOC: LAB.S 09:35
PROVIDERS: ATTEND Nurse Practitioner Family
DX: R10.30 Lower abdominal pain, unspecified (principal)
CPT/HCPCS: 36415; 80053; 84153; 85025

== ENCOUNTER 2023-09-29 12:02 | Outpatient (CLI) | payer OTHER ==
[2023-09-29] MEDS ORDERED: iohexoL-300 100 ML VIAL ONE (12:04)
[2023-09-29] MEDS ORDERED: DIATRIZOATE MEGLU/DIATRIZO SOD 30 ML BOTTLE PO ONE ×2 (12:04→13:40)
[2023-09-29 12:38] LABS: CREATININE 1.3 mg/dL (0.6-1.3)
[2023-09-29] MEDS ORDERED: iohexoL-300 100 ML VIAL IVP ONE (13:40)
--- NOTE | 2023-09-29 19:06 | CT Report ---
PROCEDURE: CT abdomen pelvis with contrast INDICATIONS: LEFT LOWER QUAD PAIN TECHNIQUE: Helical axial CT of the abdomen and pelvis was obtained after intravenous contrast adminis tration and reformatted in multiple planes. Radiation dose reduction was achieved using automated exp osure control or adjustment of mA and/or kV according to patient size. COMPARISON: 08/11/2020 FINDINGS: Lower thorax: The lung bases are clear. Heart size normal. No hiatal hernia. Liver: Hepatic parenchyma is diffusely decreased in attenuation without focal mass lesion. Biliary system: No calcified cholelithiasis or pericholecystic inflammation. No evidence of bile du ct dilatation. Pancreas: Unremarkable without mass or inflammation evident. Spleen: Normal in size and density. Adrenals: Normal morphology and density. Reproductive system: Unremarkable as visualized. Urinary system: Normal renal size and attenuation. No renal calculi, hydronephrosis, or solid mass p resent. Urinary bladder unremarkable. Gastrointestinal system: Multiple diverticuli arise from the descending and sigmoid colon. There is focal wall thickening and pericolonic abscess with thick irregular wall measuring overall 2.6 cm, sim ilar to prior exam. Mild adjacent inflammatory change. No free air or obstruction. Appendix: No findings to suggest acute appendicitis. Peritoneal spaces: No mesenteric or retroperitoneal adenopathy. No free air. No free fluid. Vasculature: The IVC, aorta and iliac vasculature are unremarkable. Abdominal wall: Small bilateral inguinal hernias and fat without bowel involvement, stable Musculoskeletal: Normal bone mineralization. No acute fractures. 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
== END 2023-09-29 12:03 | disposition home or self-care (01) ==
LOC: DI 12:02
PROVIDERS: ATTEND Nurse Practitioner Family
DX: K57.20 Diverticulitis of large intestine with perforation and abscess without bleeding (principal)
CPT/HCPCS: 36415; 74177; 82565; Q9963; Q9967